=== PATIENT | female | born 1970 | race African-American/Black ===

== ENCOUNTER 2019-10-10 16:09 | Inpatient (IN) ==
[2019-10-10] MEDS ORDERED: SODIUM CHLORIDE 0.9% 500 ML IV STA (16:46)
[2019-10-10 17:43] LABS: Basophils # 0.1 10*3/uL (0.0-0.2); Basophils % 1.4 % (0.0-0.8); Eosinophils % 0.3 % (0.00-10.9); Hematocrit 18.6 VOL% (35.7-47.0); Immature Granulocytes % 0.6 %; Immature Granulocytes Absolute 0.02 #; Lymphocytes # 0.6 10*3/uL (1.4-4.0); Lymphocytes % 17.5 % (21.3-54.2); Mean Corpuscular HGB Conc 27.4 GM/DL (32-36); Mean Corpuscular Volume 62.8 FL (87-102); Mean Platelet Volume 9.1 FL (9.6-12.0); Monocytes % 15.5 % (1.7-12.7); Neutrophils % 64.7 % (38.7-73.9); Platelet Count 278 T/CUMM (130-400); Red Blood Count 2.96 MC/CUMM (3.8-5.5); Red Cell Distribution Width 18.7 % (9.3-17.3); White Blood Count 3.5 T/CUMM (4-12)
[2019-10-10 17:44] LABS: INR 1.1; PT Patient Result 12.1 SECS (9.8-11.9); Partial Thromboplastin Time 26.2 SECS (23.9-33.8)
[2019-10-10 17:45] LABS: Hemoglobin 5.1 GM/DL (12.0-16.0)
[2019-10-10 17:49] LABS: Alanine Aminotransferase 23 U/L (13-56); Albumin 3.9 G/DL (3.4-5.0); Alkaline Phosphatase 79 U/L (45-117); Aspartate Amino Transferase 18 U/L (0-37); Blood Urea Nitrogen 6 MG/DL (7-18); Calcium 9.4 MG/DL (8.5-10.1); Estimated Glom Filtration Rate 117 ML/MIN; Ferritin 1.2 ng/ml (8-252); Glucose 86 MG/DL (74-106); Total Protein 8.7 G/DL (6.4-8.3); Troponin I < 0.015 NG/ML (0.00-0.045)
[2019-10-10 18:24] LABS: Hypochromasia 3+; Microcytosis 2+; Ovalocytes Few
[2019-10-10 18:25] LABS: Platelet Estimate Normal; Polychromasia Slight
[2019-10-10] MEDS ORDERED: GLUCAGON 1 MG VIAL IM PRN (18:56)
[2019-10-10] MEDS ORDERED: DEXTROSE 10% 250 ML BAG IV PRN (18:56)
[2019-10-10] MEDS ORDERED: SODIUM CHLORIDE 0.9% 1,000 ML IV PRN (19:52)
[2019-10-10 22:06] LABS: Amorphous Crystals,Urine Occasional /HPF (Few); Apearance,Urine CLOUDY (Clear); Bilirubin,Urine Negative (Negative); Blood, Urine Small mg/dL (Negative); Glucose,Urine (UA) Negative (Negative); Ketones,Urine 20 mg/dL (Negative); Mucus,Urine Many /LPF (Occasional); Nitrite,Urine Negative (Negative); Protein,Urine Negative; RBC,Urine 2 /HPF (0-4); Squamous Epithelial Cell,Urine Few /HPF (0-10); Urine Color Yellow (Yellow); Urine Specific Gravity 1.011 (1.001-1.035); Urine Urobilinogen < 2.0 EU/DL (0.2-1.0); WBC,Urine 25 /HPF (0-6)
[2019-10-11 06:36] LABS: Basophils # 0.1 10*3/uL (0.0-0.2); Basophils % 1.2 % (0.0-0.8); Eosinophils % 0.2 % (0.00-10.9); Hematocrit 26.9 VOL% (35.7-47.0); Hemoglobin 7.7 GM/DL (12.0-16.0); Immature Granulocytes % 0.2 %; Immature Granulocytes Absolute 0.01 #; Lymphocytes # 1.1 10*3/uL (1.4-4.0); Lymphocytes % 26.9 % (21.3-54.2); Mean Corpuscular HGB Conc 28.6 GM/DL (32-36); Mean Corpuscular Volume 71.9 FL (87-102); Mean Platelet Volume 9.3 FL (9.6-12.0); Monocytes % 18.4 % (1.7-12.7); Neutrophils % 53.1 % (38.7-73.9); Platelet Count 218 T/CUMM (130-400); Red Blood Count 3.74 MC/CUMM (3.8-5.5); Red Cell Distribution Width 26.2 % (9.3-17.3)
[2019-10-11 06:53] LABS: Albumin 3.5 G/DL (3.4-5.0); Bilirubin,Total 1.9 MG/DL (0.2-1.0); Calcium 8.8 MG/DL (8.5-10.1); Total Protein 8.2 G/DL (6.4-8.3)
[2019-10-11 07:08] LABS: Band Neutrophils 1 % (0-10); Lymphocytes 26 % (20-55); Segmented Neutrophils 55 % (50-85); Total Cells Counted 100
[2019-10-11 07:09] LABS: Atypical Lymphocytes Few; Hypochromasia 2+; Microcytosis 2+
[2019-10-11 07:10] LABS: Ovalocytes Slight; Platelet Estimate Normal; Target Cells Slight
[2019-10-11 09:57] LABS: % Iron Saturation 7.2 % (18-50)
[2019-10-11] MEDS ORDERED: ACETAMINOPHEN 325 MG TABLET PO PRN (11:06)
[2019-10-11] MEDS ORDERED: POTASSIUM CHLORIDE 20 MEQ TABLET PO ONE (12:00)
[2019-10-11] MEDS: cefTRIAXone 1,000 MG in SYRINGE 1 EACH IV SCH (15:01)
[2019-10-12 05:21] LABS: Total Protein (Chem) 8.2 G/DL (6.4-8.3)
[2019-10-12 07:19] LABS: Albumin (SPE) Rel % 60.8 %; Alpha 1 (SPE) 0.2 G/DL (0.1-0.4); Alpha 2 (SPE) 0.6 G/DL (0.4-1.0); Alpha 2 (SPE) Rel % 7.1 %; Beta (SPE) 0.7 G/DL (0.5-1.1)
[2019-10-12 07:30] LABS: Beta (SPE) Rel % 8.8 %; Gamma (SPE) 1.7 G/DL (0.7-1.7); Gamma (SPE) Rel % 21.3 %
[2019-10-12 08:05] LABS: Basophils % 0.8 % (0.0-0.8); Eosinophils # 0.1 10*3/uL (0.0-0.87); Hematocrit 30.2 VOL% (35.7-47.0); Immature Granulocytes % 0.2 %; Immature Granulocytes Absolute 0.01 #; Lymphocytes # 1.3 10*3/uL (1.4-4.0); Lymphocytes % 26.1 % (21.3-54.2); Mean Corpuscular HGB Conc 28.1 GM/DL (32-36); Mean Corpuscular Volume 71.7 FL (87-102); Mean Platelet Volume 8.9 FL (9.6-12.0); Monocytes % 9.3 % (1.7-12.7); Neutrophils % 62.6 % (38.7-73.9); Platelet Count 191 T/CUMM (130-400); Red Blood Count 4.21 MC/CUMM (3.8-5.5); Red Cell Distribution Width 25.4 % (9.3-17.3); White Blood Count 4.9 T/CUMM (4-12)
[2019-10-12 08:06] LABS: Calcium 9.2 MG/DL (8.5-10.1); Hemoglobin 8.5 GM/DL (12.0-16.0)
[2019-10-12 08:17] LABS: Hypochromasia 1+; Ovalocytes Slight; Platelet Estimate Adequate
[2019-10-12 08:19] LABS: Microcytosis 1+
[2019-10-12] MEDS: cefTRIAXone 1,000 MG in SYRINGE 1 EACH IV SCH (11:53)
[2019-10-12 12:06] LABS: Bilirubin,Direct 0.21 MG/DL (0.0-0.20); Bilirubin,Indirect 0.9 MG/DL (0.0-1.0); Bilirubin,Total 1.1 MG/DL (0.2-1.0)
[2019-10-12 13:14] VITALS: BP 119/64
[2019-10-12 14:01] LABS: Total Protein 24 Hr Ur Result 5014 MG/24HR (0-149.1); Total Volume,Urine 1150 ML (400-2000)
[2019-10-16 10:47] LABS: Albumin (UPE) Rel % 50.6 %; Alpha 1 (UPE) 155.4 MG/24H; Alpha 1 (UPE) Rel % 3.1 %; Alpha 2 (UPE) 551.5 MG/24H; Beta (UPE) 536.5 MG/24H; Beta (UPE) Rel % 10.7 %; Gamma (UPE) Rel % 24.6 %
== END 2019-10-12 16:00 | disposition home or self-care (01) | DRG 811 ==
LOC: N.ED 16:09 → N.EDINP 18:56 → N.2E 20:29
PROVIDERS: ADMIT Internal Medicine; ATTEND Internal Medicine